=== PATIENT | male | born 1970 | race Caucasian/White ===

== ENCOUNTER → 2024-02-21 12:14 | Outpatient (BNVA) | payer OTHER, SELFPAY | PROVIDERS: Visit Provider Emergency Medicine | DX: M25.562 Pain in left knee (principal); M70.62 Trochanteric bursitis, left hip | CPT/HCPCS: 73562 ==

== ENCOUNTER → 2024-03-03 16:27 | Outpatient (BNVA) | payer OTHER, SELFPAY | PROVIDERS: PCP Nurse Practitioner; Visit Provider Nurse Practitioner | DX: M70.62 Trochanteric bursitis, left hip (principal) | CPT/HCPCS: 73502 ==